=== PATIENT | male | born 1950 | race Caucasian/White ===

== ENCOUNTER 2020-02-23 15:43 | Emergency (ER) | payer MEDICARE, MEDICAID, SELFPAY ==
[2020-02-23 16:39] VITALS: BP 108/67; PULSE 80; RESP 14; TEMP 36.9; O2SAT 96; BMI 28.5
--- NOTE | 2020-02-23 16:51 | HMH.EDUTC ---
[facility] Disposition Clinical Impression: Exposure to COVID-19 virus Disposition: Home, Self-Care Condition on Discharge: Good Instructions: Preventing the Spread of Coronavirus Discharge Instructions Additional Instructions: *Monitor Temp, Over the counter Motrin or Tylenol as directed/as needed Tylenol every 4 hours and Motrin every 6 hours (as long as your family doctor has told you that you can take it) for fever or pain. and straight to ER if unable to lower temp less than 101.0 after medication given *Warm salt water gargles may help to soothe the throat *Throat Lozenges *Warm fluids like tea with honey may help to soothe the throat *Sleep elevated *Humidifier/Vaporizer Follow up IMMEDIATELY for new or worsening symptoms or no Noticeable improvement over the next 48-72 hours. 911 for difficulty breathing or swallowing You was tested for today for COVID19 your test result should be back in the next 24-48 hours, you may call to the [facility] tomorrow to see if your test results are back and the result [phone] You was given a handout with instructions for Self Quarantine and Self isolation for while you wait on test results and what to do if they are positive If you are positive the Health Dept will be contacting you also Referrals: Yamilka Balbuena [Primary Care Provider] - As needed Time of Disposition: 16:51 Medical Decision Making - Naldo Inquiry Pt receiving controlled substance: No Naldo was queried for this patient: No Vital Signs: 02/23/20 16:39 Temperature 98.4 F Temperature Source Oral Pulse Rate [Left Radial] 80 Respiratory Rate 14 Blood Pressure [Right Arm] 108/67 L Blood Pressure Mean [Right Arm] 80 Blood Pressure Source [Right Arm] Automatic Cuff Blood Pressure Position [Right Arm] Sitting 02 Sat by Pulse Oximetry 96 Oxygen Delivery Method Room Air Orders (Tests/Meds): ORDERS Category Date Time Status Covid-19 Nasal PCR ([facility]) Routine Lab 02/23/20 16:10 Received [facility] HPI - General Stated complaint: wants Covitest Time Seen by Provider: 02/23/20 16:51 Mode of Arrival: Ambulatory Source of Information: Patient Limitations: No Limitations Description of Symptoms (Recalled from Triage Doc. by RN): pt reports being exposed to covid, states he is very tired, has body aches, and has had a fever HEENT Symptoms (Recalled from RN notes): No Resp Symptoms (Recalled from RN notes): Yes (fever) Skin Symptoms (Recalled from RN notes): No MS Symptoms (Recalled from RN notes): No Functional Status (Recalled from RN notes): wnl - History of Present Illness Provider Complaint: Patient states that someone in his house tested positive for COVID States that yesterday he had body aches, chills and low grade fever but today he is feeling ok and not having any symptoms States that he wanted to come in and get checked to see if he has it States that he had part of left lung removed and has tried to stay away from the virus - Related Data Allergies Allergy/AdvReac Type Severity Reaction Status Date / Time morphine Allergy Verified 02/23/20 16:51 - Worker's Comp Is this a Worker's Comp case?: No Is this an NVELO Worker's Comp?: No Is this a Mounika Worker's Comp?: No [facility] History - Hepatitis A Screen Drug use history?: No High risk sexual behaviors?: No History of sexually transmitted infection?: No Currently employed?: No Childcare worker?: No Do you have indoor plumbing?: Yes Do you have electricity?: Yes Attestation statement:: This patient has been screened for Hepatitis A risk factors. I have reviewed the patient's past medical history: Yes Medical History: Reports:: Cancer (lung) Denies:: Diabetes Mellitus Type 1, Diabetes Mellitus Type 2, Internal Pacemaker, MRSA Other Surgeries: No: Pacemaker Amputation: No Fractures: No - Social History Alcohol Intake: never Occupational Status: retired Housing: house Household Members: spouse ROS Obtained: Yes All systems reviewed & n
[2020-02-23 17:00] VITALS: BP 108/67; PULSE 80; RESP 14; TEMP 36.9; O2SAT 96
== END 2020-02-23 17:00 | disposition home or self-care (01) ==
PROVIDERS: Emergency Provider Nurse Practitioner; PCP Family Medicine
DX: U07.1 COVID-19 (principal); Z85.118 Personal history of other malignant neoplasm of bronchus and lung
CPT/HCPCS: G0463; 99202; U0003

== ENCOUNTER 2023-06-06 06:16 | Day surgery (SDC) | payer MEDICARE, MEDICAID, SELFPAY ==
[2023-06-02 09:58] VITALS: BMI 30.5
[2023-06-06] VITALS (8 sets, daily range): BP systolic 116–138; BP diastolic 71–84; PULSE 78–102; RESP 16–18; TEMP 36.5–36.6; O2SAT 95–100
[2023-06-06] MEDS: PHENYLEPHRINE 2.5% OPHTH SOLN 2ML 0.0500000000000000028 ML OP ×3 (06:42→06:44)
[2023-06-06] MEDS: TETRACAINE 0.5% OPTH SOL 15ML OP ×3 (06:42→06:44)
[2023-06-06] MEDS: CYCLOPENTOLATE 2% OPHTH SOLN 2ML BOTTLE OP ×3 (06:42→06:44)
[2023-06-06] MEDS: SODIUM CHLORIDE 0.9% 10ML FLUSH SYRINGE 10 ML IV ×2 (06:45→08:16)
[2023-06-06] MEDS: TOBRAMYCIN/DEX OPTH SUSP 2.5ML OP (08:15)
[2023-06-06] MEDS: TIMOLOL 0.5% OPTH SOLN 5ML OP (08:15)
[2023-06-06] MEDS: LIDOCAINE 1% PF 2ML AMPULE 2 ML IJ (08:16)
[2023-06-06] MEDS: MIDAZOLAM 2MG/2ML VIAL 1 MG IV (08:16)
== END 2023-06-06 08:51 | disposition home or self-care (01) ==
PROVIDERS: PCP Family Medicine; Visit Provider Ophthalmology
PROC: (CPT 66982; principal; 2023-06-06 07:30)
DX: H25.812 Combined forms of age-related cataract, left eye (principal); H02.834 Dermatochalasis of left upper eyelid; H53.8 Other visual disturbances
CPT/HCPCS: 66982; V2632

== ENCOUNTER 2023-06-20 06:23 | Day surgery (SDC) | payer MEDICARE, MEDICAID, SELFPAY ==
[2023-06-16 13:50] VITALS: BMI 30.4
[2023-06-20] VITALS (9 sets, daily range): BP systolic 115–137; BP diastolic 69–83; PULSE 84–100; RESP 16–18; TEMP 36.2–36.8; O2SAT 96–100
[2023-06-20] MEDS: CYCLOPENTOLATE 2% OPHTH SOLN 2ML BOTTLE OP ×3 (06:47→06:48)
[2023-06-20] MEDS: TETRACAINE 0.5% OPTH SOL 15ML OP ×3 (06:47→06:48)
[2023-06-20] MEDS: PHENYLEPHRINE 2.5% OPHTH SOLN 2ML 0.0500000000000000028 ML OP ×3 (06:47→06:48)
[2023-06-20] MEDS: MIDAZOLAM 2MG/2ML VIAL 1 MG IV (08:10)
[2023-06-20] MEDS: SODIUM CHLORIDE 0.9% 10ML FLUSH SYRINGE 10 ML IV (08:10)
[2023-06-20] MEDS: LIDOCAINE 1% PF 2ML AMPULE 2 ML IJ (08:12)
[2023-06-20] MEDS: TIMOLOL 0.5% OPTH SOLN 5ML OP (08:20)
[2023-06-20] MEDS: TOBRAMYCIN/DEX OPTH SUSP 2.5ML OP (08:20)
== END 2023-06-20 08:35 | disposition home or self-care (01) ==
PROVIDERS: PCP Family Medicine; Visit Provider Ophthalmology
PROC: (CPT 66984; principal; 2023-06-20 07:30)
DX: H25.811 Combined forms of age-related cataract, right eye (principal)
CPT/HCPCS: 66984; V2632